=== PATIENT | female | born 1970 | race African-American/Black ===

== ENCOUNTER 2017-11-06 04:59 | Emergency (ER) | payer OTHER, MEDICAID ==
[~2017-11-06] VITALS: Ht 175.3 cm; Wt 81.6 kg
[2017-11-06 06:38] LABS: Eosinophils # (auto) 0.1 uL; Platelet Count (auto) 286 10^3/uL (140-450); White Blood Cell 7.1 10^3/uL (4.4-10.8)
[2017-11-06 06:40] LABS: Basophils # (auto) 0.1 uL; Basophils % (auto) 0.8 % (0.0-2.0); Eosinophils % (auto) 1.1 % (0.0-7.0); Hematocrit 38.2 % (36.0-46.0); Hemoglobin 12.8 g/dL (12.2-16.2); Lymphocytes # (auto) 2.2 uL; Lymphocytes % (auto) 31.1 % (10.0-50.0); Mean Corpuscular Hemoglobin 26.4 pg (28.0-32.0); Mean Corpuscular Hgb Conc. 33.6 g/dL (32.0-36.0); Mean Corpuscular Volume 78.5 fL (80.0-100.0); Monocytes # (auto) 0.6 uL; Monocytes % (auto) 8.8 % (0.0-12.0); Neutrophils # (auto) 4.1 uL; Neutrophils % (auto) 58.2 % (37.0-80.0); Nucleated Red Blood Cells % 0.2 %; Red Blood Cells 4.87 10^6/uL (4.0-5.20); Red Cell Distribution Width 18.4 % (11.8-14.3)
[2017-11-06 06:59] LABS: Urine Pregnacy Test Negative (Negative)
[2017-11-06 07:04] LABS: Acetaminophen < 2.0 ug/mL (10-30); Salicylate < 1.7 mg/dL (2.8-20.0)
[2017-11-06 07:06] LABS: Urine Bacteria FEW /hpf (None Seen); Urine Blood Negative /uL (Negative); Urine Mucus FEW (None Seen); Urine Specific Gravity 1.014 (1.001-1.035); Urine WBC <1 /hpf (0 - 5)
[2017-11-06 07:15] LABS: Alanine Aminotransferase 35 U/L (13-56); Albumin 3.8 g/dL (3.4-5.0); Alkaline Phosphatase 59 U/L (45-117); Anion Gap 6 (5-15); Aspartate Aminotransferase 23 U/L (15-37); BUN/Creatinine Ratio 9.3; Bilirubin, Total 1.1 mg/dL (0.2-1.0); Blood Alcohol < 3.0 mg/dL (0-5); Blood Urea Nitrogen 8 mg/dL (7-18); Calcium 8.8 mg/dL (8.5-10.1); Carbon Dioxide 27 mmol/L (21-32); Chloride 104 mmol/L (98-107); GFR African American 90 mL/min; GFR Non-African American 75 mL/min; Glucose 107 mg/dL (74-106); Potassium 3.4 mmol/L (3.5-5.1); Sodium 137 mmol/L (136-145); Total Protein 7.9 g/dL (6.4-8.2)
[2017-11-06 07:19] LABS: Alcohol, Urine < 3.0 mg/dL (0-5); Amphetamine Screen, Urine NEGATIVE (NEGATIVE); Barbiturate Scree,Urine NEGATIVE (NEGATIVE); Benzodiazephine Screen, Urine NEGATIVE (NEGATIVE); Cannabinoid Screen, Urine POSITIVE (NEGATIVE); Cocaine Screen, Urine NEGATIVE (NEGATIVE); Opiate Scree,Urine NEGATIVE (NEGATIVE); Phencyclidine Screen, Urine POSITIVE (NEGATIVE)
[2017-11-06] MEDS ORDERED: FAMOTIDINE (10MG/ML) 2ML VL IV ONE (08:00)
[2017-11-06] MEDS ORDERED: ONDANSETRON HCL 4 MG/2 ML VIAL IV ONE (08:00)
[2017-11-06] MEDS ORDERED: SODIUM CHLORIDE 0.9% 1,000 ML IV ONE (08:00)
[2017-11-06] MEDS ORDERED: PROMETHAZINE HCL 25 MG/ML 1ML IV ONE (08:15)
[2017-11-06 10:22] VITALS: BP 136/84
== END 2017-11-06 10:22 | disposition home or self-care (01) ==
LOC: ER 04:59
DX: F19.10 Other psychoactive substance abuse, uncomplicated (principal); F17.210 Nicotine dependence, cigarettes, uncomplicated
CPT/HCPCS: 36415; 80053; 80307; 80320; 80329; 81001; 81025; 85025; 96361; 96374; 96375; 99285; J2550; J3490; J7030

== ENCOUNTER 2017-11-09 19:50 | Emergency (ER) | payer OTHER, MEDICAID ==
[~2017-11-09] VITALS: Ht 175.3 cm; Wt 86.2 kg
[2017-11-09 20:00] VITALS: BP 144/102
== END 2017-11-10 01:30 | disposition home or self-care (01) ==
LOC: ER 19:50
DX: M62.838 Other muscle spasm (principal); F17.210 Nicotine dependence, cigarettes, uncomplicated; F12.10 Cannabis abuse, uncomplicated
CPT/HCPCS: 73030

== ENCOUNTER 2018-05-30 14:21 | Emergency (ER) | payer OTHER, MEDICAID ==
[~2018-05-30] VITALS: Ht 172.7 cm; Wt 87.1 kg
[2018-05-30 14:30] VITALS: BP 131/86
[2018-05-30] MEDS ORDERED: HYDROcodone-ACET 5/325MG TAB PO ONE (16:30)
== END 2018-05-30 17:02 | disposition home or self-care (01) ==
LOC: ER 14:21
DX: S00.83XA Contusion of other part of head, initial encounter (principal); I10 Essential (primary) hypertension; F17.210 Nicotine dependence, cigarettes, uncomplicated; F12.10 Cannabis abuse, uncomplicated; V43.62XA Car passenger injured in collision with other type car in traffic accident, initial encounter; Y93.89 Activity, other specified; Y92.488 Other paved roadways as the place of occurrence of the external cause; Y99.8 Other external cause status

== ENCOUNTER 2021-03-22 08:18 | Emergency (ER) | payer MEDICAID, OTHER ==
[~2021-03-22] VITALS: Ht 175.3 cm; Wt 131.5 kg
[2021-03-22 08:53] VITALS: BP 123/81
== END 2021-03-22 09:52 | disposition home or self-care (01) ==
LOC: ER 08:18
DX: S80.12XA Contusion of left lower leg, initial encounter (principal); R51.9 Headache, unspecified; I10 Essential (primary) hypertension; X58.XXXA Exposure to other specified factors, initial encounter; Y93.89 Activity, other specified; Y92.89 Other specified places as the place of occurrence of the external cause; Y99.8 Other external cause status
CPT/HCPCS: 70450

== ENCOUNTER 2022-01-15 17:40 | Emergency (ER) | payer OTHER, MEDICAID ==
[~2022-01-15] VITALS: Ht 175.3 cm; Wt 121.4 kg
[2022-01-15 18:16] VITALS: BP 116/78
[2022-01-15] MEDS ORDERED: ACETAMINOPHEN 325 MG TAB PO ONE (20:45)
[2022-01-15] MEDS ORDERED: ACET-1803 PO (22:35)
== END 2022-01-15 22:46 | disposition home or self-care (01) ==
LOC: ER 17:40
DX: S09.8XXA Other specified injuries of head, initial encounter (principal); V43.52XA Car driver injured in collision with other type car in traffic accident, initial encounter; Y93.89 Activity, other specified; Y92.89 Other specified places as the place of occurrence of the external cause; Y99.8 Other external cause status
CPT/HCPCS: 70450; 72040; 72125

== ENCOUNTER → 2023-01-13 | Outpatient (CLI) | payer OTHER ==
[~2023-01-13] MED LIST: ACET-1803 PO
[2023-01-13 08:33] LABS: Basophils # (auto) 0 10 ^3/uL (0-0.2); Basophils % (auto) 0.8 % (0.0-2.0); Eosinophils # (auto) 0.1 10 ^3/uL (0-0.8); Hematocrit 39.3 % (36.0-46.0); Hemoglobin 13.6 g/dL (12.2-16.2); Lymphocytes # (auto) 1.5 10 ^3/uL (0.4-5.4); Lymphocytes % (auto) 34.9 % (10.0-50.0); Mean Corpuscular Hemoglobin 29.7 pg (28.0-32.0); Mean Corpuscular Hgb Conc. 34.5 g/dL (32.0-36.0); Mean Corpuscular Volume 86.2 fL (80.0-100.0); Monocytes # (auto) 0.4 10 ^3/uL (0-1.3); Monocytes % (auto) 10.1 % (0.0-12.0); Neutrophils # (auto) 2.2 10 ^3/uL (1.6-8.6); Neutrophils % (auto) 52.2 % (37.0-80.0); Nucleated Red Blood Cells % 0.2 %; Red Blood Cells 4.56 10^6/uL (4.0-5.20); Red Cell Distribution Width 14.8 % (11.8-14.3); White Blood Cell 4.3 10^3/uL (4.4-10.8)
[2023-01-13 08:43] LABS: Urine Bacteria NONE SEEN /hpf (None Seen); Urine Blood Negative /uL (Negative); Urine Specific Gravity 1.016 (1.001-1.035); Urine WBC <1 /hpf (0 - 5)
[2023-01-13 09:23] LABS: Albumin 3.5 g/dL (3.4-5.0); Calcium 8.6 mg/dL (8.5-10.1); Magnesium 2.1 mg/dL (1.6-2.6); Potassium 3.8 mmol/L (3.5-5.1)
[2023-01-13 09:29] LABS: BUN/Creatinine Ratio 11.5 (10.0-20.0); Bilirubin, Total 1.1 mg/dL (0.2-1.0); Total Protein 6.9 g/dL (6.4-8.2); Uric Acid 7.5 mg/dL (2.6-6.0)
[2023-01-13 09:54] LABS: Folate (Folic Acid) 17.2 ng/mL (5.38-24)
== END | disposition home or self-care (01) ==
LOC: LAB 08:14
PROVIDERS: ATTEND Internal Medicine
DX: E78.41 Elevated Lipoprotein(a) (principal); R68.84 Jaw pain; R73.09 Other abnormal glucose; E61.2 Magnesium deficiency; E79.0 Hyperuricemia without signs of inflammatory arthritis and tophaceous disease; E55.9 Vitamin D deficiency, unspecified; D51.9 Vitamin B12 deficiency anemia, unspecified; R82.991 Hypocitraturia; R82.90 Unspecified abnormal findings in urine; R82.79 Other abnormal findings on microbiological examination of urine
CPT/HCPCS: 36415; 80053; 80061; 81001; 82306; 82607; 82746; 83036; 83735; 84443; 84550; 85025; 86703; 87086

== ENCOUNTER → 2023-01-28 | Outpatient (CLI) | payer OTHER ==
[2023-01-29 09:46] LABS: Hepatitis B Surface Antibody Negative (Negative)
[2023-01-29 10:16] LABS: Hepatitis A Total Antibody Positive (Negative)
[2023-01-29 13:25] LABS: Hepatitis C Antibody Reactive (Negative)
== END | disposition home or self-care (01) ==
LOC: LAB 07:14
PROVIDERS: ATTEND Internal Medicine
DX: Z20.2 Contact with and (suspected) exposure to infections with a predominantly sexual mode of transmission (principal); B37.31 Acute candidiasis of vulva and vagina; B18.2 Chronic viral hepatitis C; A52.3 Neurosyphilis, unspecified
CPT/HCPCS: 36415; 86592; 86695; 86696; 86703; 86704; 86706; 86708; 86803; 87340

== ENCOUNTER → 2023-02-11 | Outpatient (CLI) | payer OTHER ==
[2023-02-11 11:00] LABS: Basophils # (auto) 0 10 ^3/uL (0-0.2); Basophils % (auto) 0.4 % (0.0-2.0); Eosinophils # (auto) 0.1 10 ^3/uL (0-0.8); Hematocrit 41.6 % (36.0-46.0); Lymphocytes # (auto) 1.5 10 ^3/uL (0.4-5.4); Lymphocytes % (auto) 30.3 % (10.0-50.0); Mean Corpuscular Hemoglobin 29.3 pg (28.0-32.0); Mean Corpuscular Hgb Conc. 33.6 g/dL (32.0-36.0); Mean Corpuscular Volume 87.1 fL (80.0-100.0); Monocytes # (auto) 0.4 10 ^3/uL (0-1.3); Monocytes % (auto) 7.8 % (0.0-12.0); Neutrophils % (auto) 60.5 % (37.0-80.0); Nucleated Red Blood Cells % 0.1 %; Red Blood Cells 4.78 10^6/uL (4.0-5.20); Red Cell Distribution Width 14.4 % (11.8-14.3); White Blood Cell 4.9 10^3/uL (4.4-10.8)
[2023-02-11 11:51] LABS: Follicle Stimulating Hormone 14.67 IU/L (SEE BELOW); Prolactin 2.16 ng/mL (2.8-29.2)
[2023-02-11 15:47] LABS: Albumin 3.8 g/dL (3.4-5.0); BUN/Creatinine Ratio 11.7 (10.0-20.0); Potassium 3.9 mmol/L (3.5-5.1)
[2023-02-11 15:58] LABS: Bilirubin, Total 0.7 mg/dL (0.2-1.0); Total Protein 7.6 g/dL (6.4-8.2)
[2023-02-11 20:10] LABS: Thyroid Stimulating Hormone 0.39 uIU/mL (0.358-3.74)
== END | disposition home or self-care (01) ==
LOC: LAB 10:22
PROVIDERS: ATTEND Internal Medicine
DX: C50.911 Malignant neoplasm of unspecified site of right female breast (principal)
CPT/HCPCS: 36415; 80053; 83001; 83615; 84146; 84443; 85025; 86300

== ENCOUNTER → 2023-08-24 | Outpatient (CLI) | payer BC ==
[2023-08-24 07:58] LABS: Basophils # (auto) 0 10 ^3/uL (0-0.2); Basophils % (auto) 0.4 % (0.0-2.0); Eosinophils # (auto) 0.1 10 ^3/uL (0-0.8); Eosinophils % (auto) 3.2 % (0.0-7.0); Hematocrit 39.1 % (36.0-46.0); Hemoglobin 13.4 g/dL (12.2-16.2); Lymphocytes # (auto) 1.8 10 ^3/uL (0.4-5.4); Lymphocytes % (auto) 40.4 % (10.0-50.0); Mean Corpuscular Hemoglobin 29.1 pg (28.0-32.0); Mean Corpuscular Hgb Conc. 34.3 g/dL (32.0-36.0); Mean Corpuscular Volume 84.7 fL (80.0-100.0); Monocytes # (auto) 0.4 10 ^3/uL (0-1.3); Neutrophils # (auto) 2.2 10 ^3/uL (1.6-8.6); Nucleated Red Blood Cells % 0.1 %; Red Blood Cells 4.62 10^6/uL (4.0-5.20); Red Cell Distribution Width 14.1 % (11.8-14.3); White Blood Cell 4.6 10^3/uL (4.4-10.8)
[2023-08-24 08:37] LABS: Alanine Aminotransferase 16 U/L (7-40); Albumin 4.3 g/dL (3.2-4.8); Alkaline Phosphatase 42 U/L (46-116); Anion Gap 6 (5-15); Aspartate Aminotransferase 25 U/L (13-40); BUN/Creatinine Ratio 8.5 (10.0-20.0); Blood Urea Nitrogen 7 mg/dL (9-23); Calcium 9.4 mg/dL (8.5-10.1); Carbon Dioxide 29 mmol/L (20-30); Chloride 105 mmol/L (98-107); Glucose 103 mg/dL (74-106); Potassium 3.6 mmol/L (3.5-5.1); Sodium 140 mmol/L (136-145)
[2023-08-24 08:38] LABS: Total Protein 7.2 g/dL (5.7-8.2)
== END | disposition home or self-care (01) ==
LOC: LAB 07:28
PROVIDERS: ATTEND Internal Medicine
DX: C50.911 Malignant neoplasm of unspecified site of right female breast (principal)
CPT/HCPCS: 36415; 80053; 83615; 85025; 86300

== ENCOUNTER 2025-06-12 09:13 | Outpatient (CLI) | payer MEDICAID ==
[2025-06-12 09:47] LABS: Hematocrit 40.1 % (36.0-46.0); Hemoglobin 13.9 g/dL (12.2-16.2); Mean Corpuscular Hemoglobin 29.8 pg (28.0-32.0); Mean Corpuscular Volume 86.1 fL (80.0-100.0); Nucleated Red Blood Cells % 0.2 %
[2025-06-12 09:55] LABS: Urine Protein, UAD Negative (Negative)
[2025-06-12 10:35] LABS: Alanine Aminotransferase 16 U/L (7-40); Albumin 4.1 g/dL (3.2-4.8); Alkaline Phosphatase 59 U/L (46-116); Anion Gap 7 (5-15); BUN/Creatinine Ratio 10.4 (10.0-20.0); Blood Urea Nitrogen 10 mg/dL (9-23); Calcium 9.1 mg/dL (8.7-10.4); Carbon Dioxide 30 mmol/L (20-31); Chloride 104 mmol/L (98-107); Glucose 98 mg/dL (74-106); Magnesium 2.0 mg/dL (1.6-2.6); Potassium 4.2 mmol/L (3.5-5.1); Sodium 141 mmol/L (136-145); Total Protein 6.9 g/dL (5.7-8.2); Triglycerides 110 mg/dL (< 150)
[2025-06-12 10:36] LABS: Bilirubin, Total 0.4 mg/dL (0.2-1.0); Cholesterol 153 mg/dL (< 200)
[2025-06-12 10:38] LABS: HDL Cholesterol 67 mg/dL (40-59)
[2025-06-12 11:22] LABS: Uric Acid 5.5 mg/dL (3.1-7.8)
== END 2025-06-12 17:00 | disposition home or self-care (01) ==
LOC: LAB 09:13
PROVIDERS: ATTEND Internal Medicine
DX: E11.9 Type 2 diabetes mellitus without complications (principal); E78.49 Other hyperlipidemia; E61.2 Magnesium deficiency; E79.0 Hyperuricemia without signs of inflammatory arthritis and tophaceous disease; E55.9 Vitamin D deficiency, unspecified; D51.9 Vitamin B12 deficiency anemia, unspecified; R82.79 Other abnormal findings on microbiological examination of urine; R82.90 Unspecified abnormal findings in urine; R82.998 Other abnormal findings in urine; R94.6 Abnormal results of thyroid function studies; R68.89 Other general symptoms and signs
CPT/HCPCS: 36415; 80053; 80061; 81001; 82306; 82607; 82746; 83036; 83735; 84443; 84480; 84550; 85025; 87086

== ENCOUNTER 2025-06-26 12:42 | Outpatient (CLI) | payer MEDICAID ==
[2025-06-26 14:07] LABS: Alanine Aminotransferase 16.0 U/L (7-40); Albumin 4.5 g/dL (3.2-4.8); Alkaline Phosphatase 66.0 U/L (46-116); Bilirubin, Direct 0.2 mg/dL (<0.3); Bilirubin, Total 0.7 mg/dL (0.2-1.0); Total Protein 7.4 g/dL (5.7-8.2)
[2025-06-27 08:53] LABS: Hepatitis A Total Antibody Positive (Negative); Hepatitis B Surface Antigen Negative (Negative)
[2025-06-27 08:57] LABS: Hepatitis C Antibody Reactive (Negative)
== END 2025-06-26 17:00 | disposition home or self-care (01) ==
LOC: LAB 12:42
PROVIDERS: ATTEND Internal Medicine
DX: A60.09 Herpesviral infection of other urogenital tract (principal); A53.9 Syphilis, unspecified
CPT/HCPCS: 36415; 80076; 86704; 86706; 86708; 86803; 87340; 87902